=== PATIENT | female | born 1990 | race Caucasian/White ===

== ENCOUNTER → 2017-06-23 | Outpatient (CLI) | payer BC, OTHER ==
--- NOTE | 2017-06-23 09:31 | US ---
EXAMINATION TYPE: US gallbladder DATE OF EXAM: 06/23/2017 COMPARISON: NONE CLINICAL HISTORY: K81.9 Cholecystitis; One episode of epigastric pain x 2 days EXAM MEASUREMENTS: Liver Length: 10.2 cm Gallbladder Wall: 0.2 cm CBD: 0.3 cm Right Kidney: 10.1 x 5.5 x 4.0 cm Pancreas: wnl Liver: oval hyperechoic area = 2.0 x 1.2 x 1.2cm is noted anterior right lobe near gallbladder and c ould represent focal fatty infiltrate or hemangioma. Gallbladder: wnl Evidence for sonographic Bowers's sign: No CBD: wnl Right Kidney: wnl IMPRESSION: 1. Focal fatty infiltration versus hemangioma. The liver. Consider CT correlation.
== END | disposition home or self-care (01) ==
LOC: RADUSWWP 08:47
PROVIDERS: ATTEND Family Medicine
DX: K76.0 Fatty (change of) liver, not elsewhere classified (principal); R07.9 Chest pain, unspecified
CPT/HCPCS: 76705